=== PATIENT | male | born 1970 | race Caucasian/White ===

== ENCOUNTER → 2018-07-30 | Outpatient (CLI) | payer OTHER ==
[~2018-07-30] MED LIST: ALLEGRA30 MG/5 ML PO; AVELOX ABC PAC400 MG PO; MECLIZINE 25 MG25 M1 PO; MULTIVITAMINS1 EAC7; PERCOCET 5-3251 EACH PO; PROTONIX40 M2 PO; ZOLOFT 50 MG TA50 M1
== END ==
LOC: M.LAB 03:09
DX: Z01.812 Encounter for preprocedural laboratory examination (principal)

== ENCOUNTER → 2018-11-04 | Outpatient (CLI) | payer OTHER ==
[~2018-11-04] MED LIST changes: +ACIDOPHILUS1 EAC4 PO; +AMITRIPTYLINE H10 M3 PO; +ASPIR 8181 MG PO; +AUGMENTIN 875-1 EACH PO; +CHLORTHALIDONE25 MG PO; +CLARITIN10 MG PO; +FIBER0.4 GM PO; +MEDROLDOSEPACK PO; +POTASSIUM20 PO; +PROMETHAZINE V118 M1 PO; +TESSALON PERLE100 MG PO; +VITAMINC500 PO; +ZANTAC 150MG T150 MG PO
== END ==
LOC: M.RAD 10:50
DX: J18.1 Lobar pneumonia, unspecified organism (principal); J98.11 Atelectasis

== ENCOUNTER 2019-10-08 08:07 | Emergency (ER) | payer OTHER ==
[~2019-10-08] VITALS: Ht 190.5 cm; Wt 104.3 kg
[2019-10-08] MEDS ORDERED: SINGULAIR 10 MG10 M1 PO (08:23)
[2019-10-08] MEDS ORDERED: PROAIR HFA8.5 GM INH (08:23)
[2019-10-08] MEDS ORDERED: VITAMIN D250 MCG PO (08:24)
[2019-10-08] MEDS ORDERED: MAGNESIUM250 M1 PO (08:24)
[2019-10-08] MEDS ORDERED: FLEXERIL PO (08:53)
[2019-10-08] MEDS ORDERED: NORCO 5-325 TA1 EAC1 PO (08:53)
[2019-10-08 09:15] VITALS: BP 130/87
== END 2019-10-08 09:16 | disposition home or self-care (01) ==
LOC: M.ERS 08:07
DX: M54.5 Low back pain (principal); Z87.442 Personal history of urinary calculi; Z88.1 Allergy status to other antibiotic agents; Z98.890 Other specified postprocedural states

== ENCOUNTER 2021-07-18 21:27 | Emergency (ER) | payer OTHER ==
[~2021-07-18] VITALS: Ht 190.5 cm; Wt 106.6 kg
[~2021-07-18 21:27] MED LIST changes: +FLEXERIL PO; +MAGNESIUM250 M1 PO; +NORCO 5-325 TA1 EAC1 PO; +PROAIR HFA8.5 GM INH; +SINGULAIR 10 MG10 M1 PO; +VITAMIN D250 MCG PO
[2021-07-18] MEDS ORDERED: NEURONTIN300 MG PO (21:36)
[2021-07-18 21:55] LABS: ABSOLUTE BASOPHILS 0.1 thou/uL (0.0-0.2); ABSOLUTE EOSINOPHILS 0.2 thou/uL (0.0-0.7); ABSOLUTE MONOCYTES 0.6 thou/uL (0.0-1.2); ABSOLUTE NEUTROPHILS 5.5 thou/uL (1.6-8.1); BASOPHILS 0.8 %; EOSINOPHILS 2.3 %; HEMATOCRIT 41.4 % (42.0-52.0); HEMOGLOBIN 14.1 gm/dL (14.0-18.0); LYMPHOCYTES 23.6 %; MCHC 34.1 g/dL (28.0-37.0); MCV 88.1 fL (80.0-100.0); MONOCYTES 7.4 %; MPV 8.6 fl. (7.2-11.1); NUCLEATED RBCS 0 /100WBC; PLATELET COUNT* 176 thou/uL (150-400); POLYS 65.9 %; RDW-CV 14.5 % (10.5-14.5); WBC 8.3 thou/uL (4.0-11.0)
[2021-07-18 22:00] LABS: CALCIUM 9.2 mg/dL (8.5-10.1); CREATININE 1.3 mg/dL (0.6-1.3)
[2021-07-18 22:01] LABS: POTASSIUM 2.9 mmol/L (3.5-5.1)
[2021-07-18 22:11] LABS: ALBUMIN 3.7 g/dL (3.4-5.0); MAGNESIUM 1.7 mg/dL (1.8-2.4); TOTAL BILIRUBIN 0.2 mg/dL (<0.1-1.0); TOTAL PROTEIN 7.3 g/dL (6.4-8.2)
[2021-07-19 00:56] VITALS: BP 128/84
--- NOTE | 2021-07-19 10:02 | EKG ---
[place] [address] ELECTROCARDIOGRAM REPORT Name: JIMBO BOUDREAUX Room: [facility]#: [id number] Admission: 07/18/21 Attend Phys: Discharge: 07/19/21 Date of : 72 Date of Service: 07/18/212128 Report #: [id number] THIS REPORT FOR: //name// [facility] ED Test Date: 2021-07-18 Test Time: 21:29:28 Pat Name: JIMBO BOUDREAUX Department: Room: Gender: [employer]: [place] : 1970 Requested By: Alondra Brown Order Number: [id number] MD: Alvarado Gallagher Measurements Intervals [place] Rate: 116 P: 37 WV: 166 QRS: 69 QRSD: 102 T: -39 QT: 323 QTc: 449 Interpretive Statements Sinus tachycardia Probable left atrial enlargement Borderline T abnormalities, inferior leads Compared to ECG 10/31/2018 11:52:12 T-wave abnormality now present Sinus rhythm no longer present Electronically Signed On 07-19-2021 10:02:28 [facility] CLINICIAN by Alvarado Gallagher [email or web address] <ELECTRONICALLY SIGNED> By: Alvarado Gallagher MD, FACC 07/19/21 1002 28 28 Alvarado Gallagher MD, [facility] /EPI
== END 2021-07-19 00:56 | disposition home or self-care (01) ==
LOC: M.ERS 21:27
PROVIDERS: Emergency Medicine
DX: F41.9 Anxiety disorder, unspecified (principal); E87.6 Hypokalemia; I10 Essential (primary) hypertension; Z90.49 Acquired absence of other specified parts of digestive tract; Z79.899 Other long term (current) drug therapy; Z88.8 Allergy status to other drugs, medicaments and biological substances